=== PATIENT | male | born 1995 | race Caucasian/White ===

== ENCOUNTER 2019-05-27 20:34 | Inpatient (IN) | payer BC ==
[2019-05-27] MEDS ORDERED: Morphine 4 MG/ML VIAL ONE (22:05)
[2019-05-27] MEDS ORDERED: Ondansetron PF 4 MG/2 ML Vial ONE (22:05)
[2019-05-27] MEDS ORDERED: Ondansetron PF 4 MG/2 ML Vial IVP PRN (22:36)
[2019-05-27] MEDS ORDERED: Morphine 4 MG/ML VIAL SLOW IVP PRN (22:36)
[2019-05-27] MEDS ORDERED: Dextrose 50% Abboject 50 ML SYRINGE SLOW IVP PRN (22:36)
[2019-05-27] MEDS ORDERED: hydrALAZINE 20 MG/ML VIAL SLOW IVP PRN (22:36)
[2019-05-27] MEDS ORDERED: Dextrose 5% in Water 1,000 ML IV PRN (22:36)
[2019-05-27] MEDS ORDERED: Cyclobenzaprine 10 MG TAB PO PRN (22:39)
[2019-05-27] MEDS ORDERED: traMADol HCl 50 MG TAB PO PRN ×2 (22:39)
[2019-05-27] MEDS ORDERED: Sodium Chloride 0.9% 1,000 ML IV SCH (22:45)
[2019-05-28] MEDS: Acetaminophen 500 MG TAB PO SCH ×2 (00:27→07:46)
[2019-05-28 02:15] VITALS: BMI 26.5
--- NOTE | 2019-05-28 03:33 | HP ---
The Trauma surgeon is Dr. Lind. CONSULTING PHYSICIAN: Dr. Prado. HISTORY OF PRESENT ILLNESS: Patient is a 23-year-old male, who presented to the emergency department from an outside hospital as a transfer earlier today. He reported riding a horse and subsequently falling and being crushed by the horse. He reports a loss of consciousness. No anticoagulation use. At the outside hospital, he was carpenter scanned and received multiple x-rays of his extremities, which demonstrated a right tib-fib fracture and a right humerus fracture. Dr. Prado of Orthopedic Surgery was consulted and asked the Trauma to admit the patient. Upon my evaluation, the patient complained of pain to his right tib-fib. He denied numbness or tingling in his upper or lower extremities. Denied neck or back pain. REVIEW OF SYSTEMS: All additional 10-point review of systems negative, except as indicated above. 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 He reported that a bull's horn hit him in the eye and he has had several surgeries for it. Since that time, he is blind in that eye. PAST SURGICAL HISTORY: Several eye surgeries on the right. SOCIAL HISTORY: Patient lives at home. He denies drug use. He drinks alcohol on the weekends. He chews tobacco 2 to 3 times a week. MEDICATIONS: Patient takes a steroid drop for his eyes. He does not know the name of it right now. He will ask a family member to bring it tomorrow. ALLERGIES: NO KNOWN DRUG ALLERGIES. PHYSICAL EXAMINATION: VITAL SIGNS: Temperature 98, pulse 98, respirations 18, oxygen saturation 98% on room air, and blood pressure 126/73. PRIMARY SURVEY: Airway intact. Adequate breath sounds bilaterally. 2+ pulses in bilateral radials, femorals, and DPs. GCS 15. Gross motor and sensation intact. No lacerations or external bleeding noted. Patient does have a contusion over his right eye. SECONDARY SURVEY: HEAD: Normocephalic. No gross palpable skull deformities. The patient has a contusion over his right eye and cheek. EYES: Pupils 3 to 2, equal, round, reactive to light bilaterally. Patient does have debris and dirt in his right eye which will be irrigated. ENT: No hemotympanum, no epistaxis, no septal hematoma. Midface stable to manipulation. No blood in the oropharynx. Dentition is intact. No anterior neck injury/crepitus/tenderness. C-SPINE: No step-offs or deformities. Nontender. C-collar in place. CHEST: Nontender. No crepitus. No abrasions or ecchymosis. Equal chest movement. ABDOMEN: Soft, nontender, and nondistended. PELVIS: Stable to palpation. Nontender. No abrasions or ecchymosis noted. RECTAL: Deferred. GENITOURINARY: Deferred. EXTREMITIES: Patient with a splint to his right lower extremity. Motor and sensation are intact. He also has a sling in his right upper extremity. 2+ pulses in the bilateral radials, femorals, and DPs. BACK/SPINE: No step-offs or deformities. Palpation, no tenderness to the thoracic or lumbar spine. No abrasions or ecchymosis noted. NEUROLOGIC: 5/5 strength in bilateral regional economic liaison, plantar flexion, dorsiflexion. Gross normal sensation x4 extremities. LABORATORY FINDINGS: White count 12.5, hemoglobin 15.4, hematocrit 40.6, and platelets 254. INR 1.0. Sodium 142, potassium 3.9, chloride 109, bicarb 19, BUN 24, creatinine 1.25, and glucose 120. Plasma alcohol is less than 10. DIAGNOSTIC FINDINGS: CT scan of the brain demonstrates no acute hemorrhage or infarct. Abnormal high density of the right globe suggestive of hemorrhage or debris which is age indeterminate. If this is actual clinical finding, urgent ophthalmic consultation is advised. CT of the chest, abdomen, and pelvis demonstrates nondisplaced right greater tuberosity of the humerus fracture. No traumatic abnormalities within the chest, abdomen, or pelvis. CT of the facial bones demonstrates no acute fracture of the face. Abnormal asymptomatic hypodensity in the anterior and posterior chamber of the right globe which is asymmetrically smaller than the left globe. If the patient is actually unable to see at the right eye, urgent ophthalmic consultation would be advised. X-ray of the shoulder demonstrates nondisplaced fracture of the greater tuberosity of the humerus. CT of the C-spine demonstrates no acute fracture or malalignment of the cervical spine. Chest x-ray demonstrates no acute intrathoracic abnormality. ASSESSMENT: 1. Status post crush by horse. 2. Right tib-fib fracture, open. 3. Right humerus fracture. 4. Concussion. 5. History of right eye trauma, blind. PLAN: Patient will be admitted to the trauma service and be n.p.o. after midnight. He will be evaluated by Ortho and likely go to the OR tomorrow. He will receive normal saline at 120 an hour as well as pain medications. Postop, he will work with Physical and Occupational Therapy. We will restart the patient's home eyedrops. Patient may be able to be discharged home, but we would consider inpatient rehab as he has 2 extremity injuries. This patient was discussed with Dr. Lind before this dictation. Job ID: [id number] [facility]
[2019-05-28 05:26] LABS: #Lymphocytes 1.5 thou/uL (1.20-3.40); #Neutrophils 5.9 thou/uL (1.40-6.50); %Basophils 0.2 % (0.0-1.0); %Eosinophils 0.3 % (0.0-10.0); %Lymphocytes 18.1 % (21.0-51.0); %Monocytes 11.3 % (0.0-10.0); %Neutrophils 70.1 % (42.0-75.0); Hemoglobin 13.6 g/dL (14.0-18.0); Mean Corpuscular HGB CONC 34.7 g/dL (32.0-36.0); Mean Corpuscular Hemoglobin 30.4 pg (27.0-31.0); Mean Corpuscular Volume 87.6 fL (78.0-98.0); Mean Platelet Volume 9.2 fL (7.4-10.4); Platelet Count 185 thou/uL (130-400); Red Blood Cell (RBC) Count 4.49 mill/uL (4.70-6.10); White Blood Cell (WBC) Count 8.5 thou/uL (4.8-10.8)
[2019-05-28 05:43] LABS: Anion Gap 16 mmol/L (10-20); BUN (Urea Nitrogen) 13 mg/dL (8.9-20.6); Calc. Creatinine Clearance 166 mL/min (70-130); Calcium 8.5 mg/dL (7.8-10.44); Carbon Dioxide 18 mmol/L (22-29); Chloride 108 mmol/L (98-107); Estimated GFR-MDRD Greater than 90; Glucose 109 mg/dL (70-105); Phosphorus 4.1 mg/dL (2.3-4.7); Potassium 3.8 mmol/L (3.5-5.1); Sodium 138 mmol/L (136-145)
[2019-05-28] MEDS ORDERED: Ibuprofen 600 MG TAB PO SCH (06:00)
[2019-05-28] MEDS ORDERED: Midazolam HCl 2 mg/2 ml Vial ONE ×2 (06:23→07:03)
[2019-05-28] MEDS ORDERED: Fentanyl 100 MCG/2 ML VIAL ONE ×2 (06:23→07:02)
[2019-05-28 06:34] VITALS: BP 119/76; TEMP 97.8
[2019-05-28] MEDS ORDERED: Dexamethasone 4 mg/ml Vial ONE (06:51)
[2019-05-28] MEDS ORDERED: CEFAZOLIN 2 GM in Premix Bag 1 BAG IVPB SCH ×2 (07:30→14:00)
[2019-05-28] MEDS ORDERED: Promethazine HCl 25 MG/ML VIAL IM PRN ×2 (08:43→08:46)
[2019-05-28] MEDS ORDERED: Ondansetron HCl/PF 4 MG/2 ML Vial IVP PRN ×2 (08:43→08:46)
[2019-05-28] MEDS ORDERED: HYDROmorphone 2 MG/ML VIAL SLOW IVP PRN (08:43)
[2019-05-28] MEDS ORDERED: Promethazine HCl 25 MG/ML VIAL SLOW IVP PRN ×2 (08:43→08:46)
--- NOTE | 2019-05-28 08:49 | OP ---
DATE OF PROCEDURE: 05/28/2019 PROCEDURE PERFORMED: Open reduction and internal fixation of right trimalleolar ankle fracture. PREOPERATIVE DIAGNOSIS: Right unstable trimalleolar ankle fracture. POSTOPERATIVE DIAGNOSIS: Right unstable trimalleolar ankle fracture. COMPLICATIONS: None. ESTIMATED BLOOD LOSS: Minimal. BREAKER ENGINEER: Vinny Orellana PA-C IMPLANT: Synthes 7-hole one-third tubular plate with multiple nonlocking screws. INDICATIONS: Mr. Bangura is a 23-year-old male, who fell and fractured his right ankle while riding a horse. He has an unstable trimalleolar ankle fracture. He was indicated for open reduction and internal fixation to restore anatomic alignment and promote healing. Risks have been reviewed in detail. He elected to proceed with the operation. DESCRIPTION OF PROCEDURE: Mr. Bangura was identified in the preoperative holding area. His correct extremity was marked. He was carried to the operating room. He was positioned supine. General anesthesia was induced. A multidisciplinary time-out was performed. The right lower extremity was prepped and draped in sterile fashion. We began the procedure with a lateral approach to the distal fibula. We dissected down through the subcutaneous tissues to the fascia, which was opened. We exposed the underlying fibular fracture. We protected the neurovascular structures. At this point, we proceeded to reduce the fracture into its anatomic position. This was held with a reduction clamp. We then applied a one-third tubular plate along the lateral cortex. Multiple screws were placed proximally and distally. Seven screws were placed. We took x-ray images confirming that the fibula was well reduced and plated. Next, we made an incision over the medial malleolus. We dissected down through the subcutaneous tissues to the fascia and exposed the medial malleolar fracture. We irrigated the joint and the fracture. We then reduced the fracture with a reduction clamp and held this appropriately. Next, we placed two 4.0 partially-threaded screws across the medial malleolus. We took x-ray images including a stress view x-ray, which was negative. We proceeded with irrigation and wound closure in layers appropriately. A sterile dressing was applied. The patient was taken to the recovery room in good condition at this point without complication. Job ID: [id number]
[2019-05-28] MEDS ORDERED: Atropine Sulfate 1% Ophth Soln 5 ml Bottle R EYE SCH (09:00)
[2019-05-28] MEDS ORDERED: FLU VACC QS2019-20(6MOS UP)/PF 60 MCG/0.5 ML SYRINGE IM ONE (09:00)
[2019-05-28] MEDS ORDERED: Polyethylene Glycol 3350 17 GM Packet PO SCH (09:00)
[2019-05-28] MEDS ORDERED: Famotidine/PF 20 mg/2ml Vial SLOW IVP SCH (09:00)
[2019-05-28] MEDS ORDERED: Gabapentin 300 MG CAP PO SCH (09:00)
[2019-05-28] MEDS ORDERED: prednisoLONE 1% Ophth Susp 5 ml Bottle R EYE SCH (09:00)
[2019-05-28] MEDS ORDERED: Senokot S 8.6-50 MG TAB PO SCH (09:00)
[2019-05-28] MEDS ORDERED: Bupivacaine HCl 0.5%/Epinephrine 1:200,000/PF 30 ml Vial ONE (10:39)
[2019-05-28] MEDS ORDERED: Dexamethasone 20 MG/5 ML VIAL ONE (10:39)
[2019-05-28] MEDS ORDERED: Lidocaine 1% PF 5 ML VIAL ONE (10:39)
[2019-05-28] MEDS ORDERED: PROPOFOL 200 MG/20 ML VIAL ONE (10:39)
[2019-05-28] MEDS ORDERED: Succinylcholine Chloride 20 MG/ML 10 ml SYRINGE FS ONE (10:39)
[2019-05-28] MEDS ORDERED: Rocuronium Bromide 10 MG/ML (10ML VIAL) ONE (10:39)
--- NOTE | 2019-05-28 11:22 | RAD ---
XR Ankle Rt 3 View STANDARD HISTORY: Fractures of the tibia and fibula COMPARISON: 05/27/2019 FINDINGS: 2 spot fluoroscopic intraoperative images of the right ankle demonstrate interval reduction and internal fixation of the medial malleolar and distal fibular fractures since the comparison exam. A plate and screws are seen in the distal fibular shaft fracture and 2 screws internally fixed the medial malleolar fracture.
--- NOTE | 2019-05-28 15:19 | DIS ---
DATE OF ADMISSION: 05/27/2019 DATE OF DISCHARGE: 05/28/2019 CONSULTS: Orthopedic Surgery, Dr. Prado. PROCEDURES: On 05/28/2019, open reduction and internal fixation of a right trimalleolar ankle fracture by Dr. Prado. PRIMARY DIAGNOSES: Status post crush injury by horse, right tibia-fibular fracture, open, status post open reduction and internal fixation, right humerus fracture, conservative management with a sling, concussion. SECONDARY DIAGNOSIS: Blind in right eye due to trauma. DISCHARGE MEDICATIONS: 1. Tramadol 50 mg p.o. q.6 hours 1 to 2 tablets p.r.n. pain, #30. 2. Acetaminophen 1000 mg q.6 hours. 3. Atropine ophthalmic solution. 4. Ibuprofen 600 mg q.8 hours. HISTORY OF PRESENT ILLNESS AND HOSPITAL COURSE: This is a 23-year-old male, who presented to the emergency department after riding his horse and falling and being crushed by the horse. The patient did report a loss of consciousness. The patient was found to have a right tibia-fibular fracture and a right humerus fracture. The patient's pain was well controlled pre and postop. The patient was able to work with physical therapy using a walker. On the day of discharge, the patient was examined by Dr. Higuera, the patient's vital signs were stable, and his exam was unremarkable including cardiopulmonary and GI exam. The patient was able to tolerate a regular diet. The patient was deemed stable for discharge home with a walker. DISPOSITION: Stable. DISCHARGE INSTRUCTIONS: 1. Location: Home. 2. Diet: Regular diet as tolerated. 3. Activity: Nonweightbearing of right lower extremity, right upper extremity weightbearing as tolerated. Sling for comfort and out of bed activities. 4. Followup: Follow up with Orthopedic Surgery. Call for appointment. No need to follow up with Trauma Services. Please call for any questions. The [facility] site was accessed and no prescriptions filled in the last 30 days. This is just a summary of the hospital visit. Job ID: [id number] [facility]
== END 2019-05-28 15:20 | disposition home or self-care (01) | DRG 493 ==
LOC: ERS 20:34 → SURG A 22:08
PROVIDERS: ADMIT Surgery; ATTEND Surgery
PROC: 0QSJ04Z Reposition Right Fibula with Internal Fixation Device, Open Approach (ICD-10-PCS; principal; 2019-05-28)
DX: S82.851A Displaced trimalleolar fracture of right lower leg, initial encounter for closed fracture (principal); S42.341A Displaced spiral fracture of shaft of humerus, right arm, initial encounter for closed fracture; S06.0X9A Concussion with loss of consciousness of unspecified duration, initial encounter; F17.220 Nicotine dependence, chewing tobacco, uncomplicated; Y93.52 Activity, horseback riding
CPT/HCPCS: 36415; 76000; 80048; 83735; 84100; 85025; C1713; J0690; J1100; J2250; J2270; J2405; J3010